=== PATIENT | male | born 1975 | race Hispanic/Latino ===

== ENCOUNTER 2018-09-15 10:28 | Emergency (ER) | payer BC ==
[~2018-09-15] VITALS: Ht 177.8 cm; Wt 88.5 kg
--- OUTSIDE RECORDS SUMMARY | 2018-09-15 10:30 | XMS REPORT | Continuity of Care Document ---
Author Author [facility] Interface Address Unknown Phone Unavailable Problems Problem Status Onset Date Classification Date Reported Comments Source Medications Medication Details Route Status Patient Instructions Ordering Provider Order Date Source Allergies, Adverse Reactions, Alerts Substance Category Reaction Severity Reaction type Status Date Reported Comments Source Immunizations Immunization Date Given Site Status Last Updated Comments Source Results Order Name Results Value Reference Range Date Interpretation Comments Source Chest 2 views DX Chest 2 views DX Patient Name: VINCENT ROONEY. : 1975; Age: 40 years y/o; Male. MR: [id number]. Ordering Physician: Avis Max MD. CHEST 2 VIEWS: HISTORY: Bronchitis, crackles at lung bases, pneumonia, cough. COMPARISON: None. FINDINGS: Frontal and lateral views of the chest were obtained. The lungs are clear bilaterally. The cardiomediastinal silhouette and pulmonary vasculature are unremarkable. The partially visualized upper abdomen is unremarkable. IMPRESSION: No acute disease in the chest. SL: SHRUTI 05/14/2016 - - Read by: Levi Lopez MD Dictated Date/time: 05/14/16 20:13 Electronically Signed by: Levi Lopez MD 05/14/16 20:13 FINAL REPORT [facility] Vital Signs Vital Sign Value Date Comments Source Encounters Location Location Details Encounter Type Encounter Number Reason For Visit Attending Provider ADM Date DC Date Status Source Outpatient [id number] AVIS MAX 05/14/2016 Active [facility] Procedures Procedure Code Date Perfomer Comments Source
--- OUTSIDE RECORDS SUMMARY | 2018-09-15 10:30 | XMS REPORT | Clinical Summary ---
Author Author [facility] Organization [facility] Address Unknown Phone Unavailable Care Team Providers Care Apple Peeler Operator Name Role Phone Khushi Wang PCP Allergies No Known Allergies Medications End Date Status Medication Sig Dispensed Refills Start Date Active potassium citrate Take 1 tablet 90 tablet 6 (UROCIT-K) 10 mEq (1,080 (10 mEq 8 mg) CR tabletIndications: total) by Hypocitraturia mouth 2 (two) times a day with meals. Active colchicine 0.6 mg tablet 2 po at onset 30 tablet 0 of gout. 8 Repeat 1 po in an hour. 07/10/2019 Active indapamide (LOZOL) 1.25 Take 1 tablet 90 tablet 3 MG tablet (1.25 mg 9 total) by mouth every morning. Active allopurinol (ZYLOPRIM) Take 1 tablet 90 tablet 1 300 MG tablet (300 mg 9 total) by mouth daily. 05/08/2018 Discontinued allopurinol (ZYLOPRIM) TAKE 1 TABLET 90 tablet 0 300 MG tablet BY MOUTH 8 EVERY DAY 04/05/2018 indomethacin (INDOCIN) 25 Take 1 90 capsule 2 MG capsule capsule (25 8 mg total) by mouth 3 (three) times a day with meals for 90 days. 08/07/2018 Discontinued allopurinol (ZYLOPRIM) TAKE 1 TABLET 90 tablet 0 300 MG tablet BY MOUTH 8 EVERY DAY 07/22/2018 Discontinued tamsulosin (FLOMAX) 0.4 Take 1 30 capsule 0 mg capsule capsule (0.4 9 mg total) by mouth daily for 30 days. 07/11/2018 naproxen (NAPROSYN) 500 Take 1 tablet 10 tablet 0 MG tablet (500 mg 9 total) by mouth 2 (two) times a day with meals for 5 days. 08/21/2018 tamsulosin (FLOMAX) 0.4 Take 1 30 capsule 0 mg capsule capsule (0.4 9 mg total) by mouth daily for 30 days. 07/25/2018 sulfamethoxazole-trimetho Take 1 tablet 6 tablet 0 prim (BACTRIM DS) 800-160 by mouth 2 9 mg per tablet (two) times a day for 3 days. 08/05/2018 traMADol (ULTRAM) 50 mg Take 1 tablet 15 tablet 0 tablet (50 mg total) 9 by mouth every 6 (six) hours as needed for moderate pain for up to 14 days. 08/05/2018 phenazopyridine Take 1 tablet 15 tablet 0 (PYRIDIUM) 100 MG tablet (100 mg 9 total) by mouth 3 (three) times a day as needed for bladder spasms for up to 14 days. 08/21/2018 docusate sodium (COLACE) Take 1 60 capsule 0 100 MG capsule capsule (100 9 mg total) by mouth 2 (two) times a day for 30 days. 08/05/2018 oxybutynin (DITROPAN) 5 Take 1 tablet 10 tablet 0 MG tablet (5 mg total) 9 by mouth 3 (three) times a day as needed for bladder spasms for up to 14 days. Active Problems Problem Noted Date Bilateral ureteral calculi 07/22/2018 Moderate urinary obstruction 06/30/2017 Obstructive uropathy 06/28/2017 Liver hemangioma 03/21/2017 Acute pyelonephritis 06/25/2016 Ureterolithiasis 06/14/2016 Gout 04/18/2011 Encounters Care Team Description Date Type Specialty Silvina Beckett MD Kidney stones 09/01/2018 Hospital Radiology Encounter Silvina Beckett MD Kidney stones 09/01/2018 Hospital Radiology Encounter Khushi Wang DO 08/07/2018 Refill Family Medicine Silvina Beckett MD Kidney stones (Primary Dx) 08/03/2018 Procedure visit Urology Zehra Portillo MA 07/23/2018 Telephone Urology Silvina Beckett MD CYSTO, BILATERAL URETEROSCOPY W/ LASER LITHOTRIPSY, BILATERAL URETERAL STONE REMOVAL, BILATERAL URETERAL STENT INSERTION 07/22/2018 Surgery Urology Kelley Olvera APRN 07/22/2018 Anesthesia Urology Event Silvina Beckett MD Bilateral ureteral calculi; Renal stone 07/22/2018 Hospital General Internal Medicine - Encounter 07/23/2018 Silvina Beckett MD 07/22/2018 Telephone Urology Silvina Beckett MD 07/16/2018 Telephone Urology Silvina Beckett MD Recurrent kidney stones (Primary Dx); Hypocitraturia; Hypercalciuria 07/10/2018 Office Visit Urology Del[facility] MD Bernice Ureteral stone with hydronephrosis (Primary Dx) 07/05/2018 Emergency Emergency Medicine - 07/06/2018 Khushi Wang, 05/08/2018 Refill Family Medicine Khushi Wang, DO 03/09/2018 Telephone Family Medicine Khushi Wang DO 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 (Primary Dx); Migraine without aura and without status migrainosus, not intractable 01/05/2018 Office Visit Family Medicine Khushi Wang, 01/05/2018 Telephone Family Medicine Zehra Portillo MA 12/16/2017 Telephone Urology Silvina Beckett MD 12/16/2017 Orders Only Urology Carrillo Laureano MD 10/10/2017 Orders Only Urology Silvina Beckett MD Hypocitraturia (Primary Dx); Nephrolithiasis; Hypercalciuria 10/02/2017 Office Visit Urology Silvina Beckett MD 09/26/2017 Telephone Urology Silvina Beckett MD 09/25/2017 Telephone Urology Carrillo Laureano MD 09/24/2017 Orders Only Urology Zehra Portillo MA 09/24/2017 Telephone Urology after 09/14/2017 Immunizations Name Dates Previously Given Next Due FLUCELVAX QUAD PF (0.5mL 07/01/2017 syringe) Tdap 10/05/2005 Family History Medical History Relation Name Comments Seizures Father Thyroid disease Father No Known Problems Mother Relation Name Status Comments Father Alive Mother Alive Social History Date Tobacco Use Types Packs/Day Years Used Light Tobacco Smoker Cigars, 0.25 20 Cigarettes Smokeless Tobacco: Never Used Tobacco Cessation: Ready to Quit: No; Counseling Given: No Comments: occaisional Alcohol Use Drinks/Week oz/Week Comments Yes occasionally Sex Assigned at Date Recorded Not on file Industry Job Start Date Occupation Not on file Not on file Not on file Travel End Travel History Travel Start No recent travel history available. Last Filed Vital Signs Time Taken Vital Sign Reading 07/23/2018 7:40 AM RECORDING STUDIO SET UP WORKER Blood Pressure 130/79 07/23/2018 7:40 AM RECORDING STUDIO SET UP WORKER Pulse 79 07/23/2018 7:40 AM RECORDING STUDIO SET UP WORKER Temperature 36.5 C (97.7 F) 07/23/2018 7:40 AM RECORDING STUDIO SET UP WORKER Respiratory Rate 18 07/23/2018 7:40 AM RECORDING STUDIO SET UP WORKER Oxygen Saturation 97% - Inhaled Oxygen - Concentration 07/22/2018 6:31 AM RECORDING STUDIO SET UP WORKER Weight 88.1 kg (194 lb 2 oz) 07/22/2018 6:31 AM RECORDING STUDIO SET UP WORKER Height 177.8 cm (5' 10") 07/22/2018 6:31 AM RECORDING STUDIO SET UP WORKER Body Mass Index 27.85 Plan of Treatment Health Maintenance Due Date Last Done Comments INFLUENZA VACCINE 01/14/2018 07/01/2017 Implants Device Identifier Shelf Expiration Date Model / Serial / Lot Implanted Type Area Manufactur er 03/19/2019 [id number] / / [id number] Stent Uretl Unvrsa 6fr 28cm Surgical N/A: N/A [employer] Resources[employer]ol[employer] W/ Gw - [id number] Stents UROLOGICAL Implanted: 06/15/2016 (Quantity not on file) 12/14/2018 [id number] / / [id number] Stent Uretl Unvrsa 6fr 28cm Surgical Left: N/A [employer] ResourcesphFollicum W/ Gw - [id number] Stents UROLOGICAL Implanted: Qty: 1 on 07/11/2016 by Silvina Beckett MD 03/10/2020 [id number] / / [id number] Stent Uretl Unvrsa Reprcsd 6fr 26cm Urological N/A: N/A [employer] Resourcesphlc Ctng - [id number] Implants UROLOGICAL Implanted: 06/28/2017 (Quantity not or Sets on file) 02/29/2020 [id number] / / [id number] Stent Uretl Unvrsa Reprcsd 6fr 26cm Urological Left: Ureter, COOK Hydrphlc Ctng - [id number] Implants [place] UROLOGICAL Implanted: 07/16/2017 (Quantity not or Sets on file) 04/05/2021 192 133 / / [id number] Stent Uretl Polrs Ult 2drmtr 6fr Urological Right: Ureter, BSC 26cm Hydroplus W/O Gw - [id number] Implants [place] UROLOGY Implanted: Qty: 1 on 07/22/2018 by or Silvina Richard MD 04/05/2021 192 133 / / [id number] Stent Uretl Polrs Ult 2drmtr 6fr Urological Left: Ureter, BSC 26cm Hydroplus W/O Gw - [id number] Implants [place] UROLOGY Implanted: Qty: 1 on 07/22/2018 by or Silvina Richard MD Procedures Comments Procedure Name Priority Date/Time Associated Diagnosis XR KUB KIDNEY URETER Routine 09/01/2018 Kidney stones BLADDER 11:35 AM CDT US RENAL Routine 09/01/2018 Kidney stones 11:30 AM CDT POC URINALYSIS DIPSTICK Routine 08/03/2018 Kidney stones 11:03 AM RECORDING STUDIO SET UP WORKER ESTIMATED GFR Routine 07/23/2018 4:50 AM RECORDING STUDIO SET UP WORKER HEMOGLOBIN & HEMATOCRIT Routine 07/23/2018 4:50 AM RECORDING STUDIO SET UP WORKER BASIC METABOLIC PANEL Routine 07/23/2018 4:50 AM RECORDING STUDIO SET UP WORKER SURGICAL PATHOLOGY Routine 07/22/2018 REQUEST 11:05 AM RECORDING STUDIO SET UP WORKER CALCULI ANALYSIS WITH Routine 07/22/2018 PHOTO 9:53 AM RECORDING STUDIO SET UP WORKER CALCULI ANALYSIS WITH Routine 07/22/2018 PHOTO 9:53 AM RECORDING STUDIO SET UP WORKER FL RENAL STENTOGRAM Routine 07/22/2018 9:00 AM RECORDING STUDIO SET UP WORKER MA AN ELECTIVE Routine 07/22/2018 ENDOTRACHEAL AIRWAY 8:19 AM RECORDING STUDIO SET UP WORKER Procedure Note - Martine Vega CRNA - 07/22/2018 8:19 AM RECORDING STUDIO SET UP WORKER ANESTHESIA INTUBATION Date/Time: 07/22/2018 8:00 AM Performed by: Martine Vega CRNA Authorized by: Ever Arroyo MD Location: OR Urgency: Elective Anesthesio logist: Ever Arroyo MD Resident/C RNA/AA: Martine Vega CRNA Performed by: resident/C RNA/AA Preoxygena jorge luis with 100% O2: Yes Mask Ventilatio n: Easy mask Final Airway Type: Endotrache al airway Final Endotrache al Airway: ETT Technique Used: Direct laryngosco py Insertion Site: Oral Blade Type: Sexton Laryngosco pe Blade/Vide olaryngosc ope Blade Size: 2 ETT Size (mm): 8.0 Measured from: Lips ETT to Lips (cm): 23 Placement Verified by: CO2 detection, direct visualizat ion and equal breath sounds Laryngosco pic view: Grade IIa - partial view of glottis Rapid Sequence Induction (RSI): No Modified RSI: No Number of Attempts at Approach: 1 CYSTO, URETEROSCOPY 07/22/2018 Bilateral ureteral 8:00 AM RECORDING STUDIO SET UP WORKER calculi Renal stone Special Needs EST 3 HRS PROTHROMBIN TIME WITH INR Routine 07/10/2018 Recurrent kidney stones 11:38 AM RECORDING STUDIO SET UP WORKER PARTIAL THROMBOPLASTIN Routine 07/10/2018 Recurrent kidney stones TIME (PTT) 11:38 AM RECORDING STUDIO SET UP WORKER MICROSCOPIC EXAMINATION Routine 07/10/2018 10:35 AM RECORDING STUDIO SET UP WORKER URINALYSIS, AUTOMATED Routine 07/10/2018 Recurrent kidney stones WITH MICROSCOPY 10:35 AM RECORDING STUDIO SET UP WORKER CT RENAL STONE PROTOCOL STAT 07/06/2018 1:58 AM RECORDING STUDIO SET UP WORKER ESTIMATED GFR STAT 07/06/2018 12:47 AM RECORDING STUDIO SET UP WORKER LACTIC ACID LEVEL, SEPSIS Timed 07/06/2018 - NOW AND REPEAT 2X EVERY 12:47 AM RECORDING STUDIO SET UP WORKER 3 HOURS COMPREHENSIVE METABOLIC STAT 07/06/2018 PANEL 12:47 AM RECORDING STUDIO SET UP WORKER HC COMPLETE BLD COUNT STAT 07/06/2018 W/AUTO DIFF 12:47 AM RECORDING STUDIO SET UP WORKER URINALYSIS SCREEN AND Routine 07/06/2018 MICROSCOPY, WITH REFLEX 12:47 AM RECORDING STUDIO SET UP WORKER TO CULTURE URINE CULTURE Routine 07/06/2018 12:45 AM RECORDING STUDIO SET UP WORKER URIC ACID LEVEL Routine 03/09/2018 Chronic idiopathic gout 1:50 PM CDT involving toe of right foot without tophus COMPREHENSIVE METABOLIC Routine 03/09/2018 Chronic idiopathic gout PANEL 1:50 PM CDT involving toe of right foot without tophus LITHOLINK STONE RISK Routine 12/16/2017 FACTORS, DIETARY FACTORS, AND NORMALIZED VALUES STONE ANALYSIS Routine 10/10/2017 after 09/14/2017 Results * XR Kub Kidney Ureter Bladder (09/01/2018 11:35 AM CDT) Narrative Performed At XR KUB [facility]ID[facility]RETER BL[facility]DER [facility] CLINICAL INDICATION:N20.0 Calculus of kidney, kidney stones COMPARISON:November 15, 2016, CT July 06, 2018 IMPRESSION: Recent CT evaluation demonstrated bilateral nephrolithiasis and small stones in the proximal ureters. Although bowel obscures the renal fossa bilaterally, no distinct renal or ureteral stones are identified. Bowel gas pattern is within normal limits. There is no evidence for free intraperitoneal air. Osseous structures are intact. [id number] Procedure Note Interface, Radiology Results Incoming - 09/01/2018 11:52 AM CDT XR KUB KIDNEY URETER BLADDER CLINICAL INDICATION: N20.0 Calculus of kidney, kidney stones COMPARISON: November 15, 2016, CT July 06, 2018 IMPRESSION: Recent CT evaluation demonstrated bilateral nephrolithiasis and small stones in the proximal ureters. Although bowel obscures the renal fossa bilaterally, no distinct renal or ureteral stones are identified. Bowel gas pattern is within normal limits. There is no evidence for free intraperitoneal air. Osseous structures are intact. [id number] Performing Organization Address City/State/Zipcode Phone Number [facility] [address] [place] [address] * US Renal (09/01/2018 11:30 AM CDT) Narrative Performed At EXAMINATION:[facility] CLINICAL HISTORY:N20.0 Calculus of kidney, kidney stones COMPARISON:03/19/2017 ultrasound exam, 07/06/2018 CT renal stone exam. TECHNIQUE: Renal ultrasound performed utilizing grayscale/B mode, and color Doppler technique. FINDINGS: Right kidney: Measures 12.3 cm in length and 1.5 cm in cortical thickness. Increased echogenicity compatible with medical renal disease. Previous right renal stone is not identified on current exam. No renal mass or hydronephrosis is identified. Left kidney: Measures 12.5 cm in length and 1.3 cm in cortical thickness. Increased echogenicity compatible with medical renal disease. A 2.2 x 0.9 cm conglomerate calculus in the inferior left kidney is grossly stable since 2017 exam. A couple tiny echogenic foci likely represent additional tiny renal stones. At least mild hydronephrosis given partial loss of the renal sinus fat. No renal mass is identified. Bladder: Unremarkable. IMPRESSION: A 2.2 cm inferior left renal conglomerate calculus is stable since 03/19/2017 exam. A couple tiny echogenic lesions identified are probably additional left renal calculi. Mild left hydronephrosis is probable. No discrete right renal stone on current exam. Medical renal disease. I personally reviewed the images and the resident's findings and agree with the final report. [facility]-[id number] Procedure Note [facility], Radiology Results Incoming - 09/01/2018 2:08 PM CDT EXAMINATION: US RENAL CLINICAL HISTORY: N20.0 Calculus of kidney, kidney stones COMPARISON: 03/19/2017 ultrasound exam, 07/06/2018 CT renal stone exam. TECHNIQUE: Renal ultrasound performed utilizing grayscale/B mode, and color Doppler technique. FINDINGS: Right kidney: Measures 12.3 cm in length and 1.5 cm in cortical thickness. Increased echogenicity compatible with medical renal disease. Previous right renal stone is not identified on current exam. No renal mass or hydronephrosis is identified. Left kidney: Measures 12.5 cm in length and 1.3 cm in cortical thickness. Increased echogenicity compatible with medical renal disease. A 2.2 x 0.9 cm conglomerate calculus in the inferior left kidney is grossly stable since 2017 exam. A couple tiny echogenic foci likely represent additional tiny renal stones. At least mild hydronephrosis given partial loss of the renal sinus fat. No renal mass is identified. Bladder: Unremarkable. IMPRESSION: A 2.2 cm inferior left renal conglomerate calculus is stable since 03/19/2017 exam. A couple tiny echogenic lesions identified are probably additional left renal calculi. Mild left hydronephrosis is probable. No discrete right renal stone on current exam. Medical renal disease. I personally reviewed the images and the resident's findings and agree with the final report. [facility]-[id number] Performing Organization Address City/[facility]/Zipcode Phone Number [facility] [address] [place] [address] * POC urinalysis dipstick (08/03/2018 11:03 AM RECORDING STUDIO SET UP WORKER) Color urine, POC Yellow Clarity urine, POC Clear Glucose urine, POC Negative Negative Bilirubin urine, POC Negative Negative Ketones urine, POC Negative Negative Specific gravity urine, 1.015 1.005 - 1.030 POC Blood urine, POC Large (A) Negative pH urine, POC 7.0 5.0, 5.5, 6.0, 6.5, 7.0, 7.5, 8.0, 8.5 Protein urine, POC 3+ (A) Negative Urobilinogen urine, POC <2.0 <2.0 Nitrite urine, POC Negative Negative Leukocyte esterase urine, Large (A) Negative POC Specimen Urine * Estimated GFR (07/23/2018 4:50 AM RECORDING STUDIO SET UP WORKER) Only the most recent of 2 results within the time period is included. Estimated GFR 76 mL/min/1.73 m2 [facility] Comment: HOSPITAL CatergoryUnitsInte rpretation G1 >=90 Normal or high G2 60-89Mildly decreased G3e84-36 Mildly to moderately decreased Z7f32-90 Moderately to severely decreased G4 15-29Severely decreased G5 <15Kidney failure The eGFR was calculated using the Chronic Kidney Disease Epidemiology Collaboration (CKD-EPI) equation. Interpretation is based on recommendations of the National Kidney Foundation-Kidney Disease Outcomes Quality Initiative (NKF-KDOQI) published in 2014. Specimen Plasma specimen Performing Organization Address City/[facility]/Zipcode Phone Number [facility] DEPARTMENT [address] [place] [address] PATHOLOGY AND GENOMIC MEDICINE [address] * Hemoglobin & hematocrit (07/23/2018 4:50 AM RECORDING STUDIO SET UP WORKER) HGB 14.7 14.0 - 18.0 g/dL [facility] HCT 43.2 41.0 - 51.0 % [facility] Specimen Blood Performing Organization Address City/[facility]/Zipcode Phone Number [facility] DEPARTMENT OF [address] [place] [address] PATHOLOGY AND GENOMIC MEDICINE [address] * Basic metabolic panel (07/23/2018 4:50 AM RECORDING STUDIO SET UP WORKER) Sodium 135 135 - 148 mEq/L [facility] Potassium 3.9 3.5 - 5.0 mEq/L [facility] Chloride 99 98 - 112 mEq/L [facility] CO2 25 24 - 31 mEq/L [facility] Anion gap 11@ANIO 7 - 15 mEq/L [facility] BUN 15 6 - 20 mg/dL [facility] Creatinine 1.17 0.70 - 1.20 mg/dL [facility] Glucose 96 65 - 99 mg/dL [facility] Calcium 8.8 8.3 - 10.2 mg/dL [facility] Specimen Plasma specimen Performing Organization Address City/[facility] Phone Number [facility] DEPARTMENT OF [address] [place] [address] PATHOLOGY AND GENOMIC MEDICINE [address] * Surgical pathology request (07/22/2018 11:05 AM RECORDING STUDIO SET UP WORKER) [facility] DEPARTMENT OF PATHOLOGY AND GENOMIC MEDICINE Surgical pathology report See link below for PDF Lab [facility] DEPARTMENT OF Report PATHOLOGY AND GENOMIC MEDICINE Result status This is Final Report for [facility] DEPARTMENT OF [id number] PATHOLOGY AND GENOMIC MEDICINE Performing Organization Address City/[facility]/Zipcode Phone Number [facility] DEPARTMENT OF [address] [place] [address] PATHOLOGY AND GENOMIC MEDICINE * Calculi analysis with photo (07/22/2018 9:53 AM RECORDING STUDIO SET UP WORKER) Only the most recent of 2 results within the time period is included. Calculi mass 41 mg [facility] Calculi number Numerous [facility] Calculi size Various mm [facility] Calculi descrption See Note [facility] Comment: Calculi source reported as right renal. Specimen consists of numerous, various sized (1 mm to 9 mm), white/light kimble, crystalline calculi fragments. Calculi composition See Note [facility] Comment: Calculi composed primarily of: 20% calcium oxalate monohydrate, 60% calcium oxalate dihydrate, and 20% calcium phosphate (hydroxy- and carbonate- apatite). INTERPRETIVE INFORMATION: Calculi (Stone) analysis Calculi are the products of physiological processes that yield crystalline compounds in a matrix of biological compounds and blood.Matrix components are not reported.The clinically significant crystalline components identified in calculi specimens are reported.Gross description may not be consistent with composition determined by FTIR analysis. EER calculi (stone) See Note [facility] analysis and photo Comment: Access [employer] Enhanced Report using either link below: -Direct access: [email or web address] -Enter Username, Password: [email or web address] Username: [email or web address] Password: [email or web address] Performed by [facility], [address] [place] [id number] [email or web address], Misha Wagner MD - Lab. Director Specimen Serum Narrative Performed At [id number] [facility] Performing Organization Address City/[facility] Phone Number [facility] [address] [place] [address] [facility] [address] [place] [address] * FL Renal Stentogram (07/22/2018 9:00 AM RECORDING STUDIO SET UP WORKER) Narrative Performed At EXAMINATION:FL RENAL STENTOGRAM [facility] INDICATION:Pain IMPRESSION: Intraoperative for be provided. No radiologist present for procedure. Please see procedure note for detail. Fluoroscopic images: 11 Fluoroscopy time: 17 seconds Procedure Note Interface, Radiology Results Incoming - 07/22/2018 3:44 PM RECORDING STUDIO SET UP WORKER EXAMINATION: FL RENAL STENTOGRAM INDICATION: Pain IMPRESSION: Intraoperative for be provided. No radiologist present for procedure. Please see procedure note for detail. Fluoroscopic images: 11 Fluoroscopy time: 17 seconds Performing Organization Address City/[facility]/Zipcode Phone Number [facility] [address] [place] [address] * Partial thromboplastin time, activated (07/10/2018 11:38 AM RECORDING STUDIO SET UP WORKER) aPTT 28 24 - 33 sec [facility] Comment: This test has not been validated for monitoring unfractionated heparin therapy. aPTT-based therapeutic ranges for unfractionated heparin therapy have not been established. For general guidelines on Heparin monitoring, refer to the [facility] Directory of Services. Specimen Blood Narrative Performed At Performed at:[address] [place], [place] [id number] Sash Finisher: Tin Mariano MD, Phone:[phone] Performing Organization Address [facility] Phone Number [facility] * Prothrombin time with INR (07/10/2018 11:38 AM RECORDING STUDIO SET UP WORKER) INR 0.9 0.8 - 1.2 [facility] Comment: Reference interval is for non-anticoagulated patients. Suggested INR therapeutic range for Vitamin K antagonist therapy: Standard Dose (moderate intensity therapeutic range): 2.0 - 3.0 Higher intensity therapeutic range 2.5 - 3.5 Prothrombin time 9.8 9.1 - 12.0 sec [facility] Specimen Blood Narrative Performed At Performed at:[address] [place], [place] [id number] Sash Finisher: Tin Mariano MD, Phone:[phone] Performing Organization Address [facility] Phone Number [facility] * Microscopic Examination (07/10/2018 10:35 AM RECORDING STUDIO SET UP WORKER) WBC, UA 0-5 0 - 5 /hpf [facility] RBC, UA 0-2 0 - 2 /hpf [facility] Epithelial cells (non 0-10 0 - 10 /hpf [facility] renal) Mucus, UA Present Not Estab. [facility] Bacteria, UA None seen None seen/Few [facility] Narrative Performed At Performed at:[address] [place], [place] [id number] Sash Finisher: Tin Mariano MD, Phone:[phone] Performing Organization Address [facility] Phone Number [facility] * Urinalysis, automated with microscopy (07/10/2018 10:35 AM RECORDING STUDIO SET UP WORKER) Specific gravity, urine 1.013 1.005 - 1.030 [facility] pH, urine 6.0 5.0 - 7.5 [facility] Color, UA Yellow Yellow [facility] Appearance Clear Clear [facility] WBC esterase, urine Negative Negative [facility] Protein, UA Negative Negative/Trace [facility] Glucose, urine Negative Negative [facility] Ketones, UA Negative Negative [facility] Occult blood, urine Trace (A) Negative [facility] Bilirubin, UA Negative Negative [facility] Urobilinogen, UA 0.2 0.2 - 1.0 mg/dL [facility] Nitrite, UA Negative Negative [facility] Microscopic examination See below:Comment: Microscopic [facility] was indicated and was performed. Specimen Urine Narrative Performed At Performed at: [facility] [address] [place], [id number] Sash Finisher: Tin Mariano MD, Phone:[phone] Performing Organization Address City/State/Zipcode Phone Number [id number] * CT Renal Stone Protocol (07/06/2018 1:58 AM RECORDING STUDIO SET UP WORKER) Narrative Performed At EXAMINATION:CT RENAL STONE PROTOCOL RADIANT CLINICAL HISTORY:Flank painrecurrent stone disease suspected TECHNIQUE: Multiple axial images of the abdomen and pelvis were obtained without intravenous administration of iodinated contrast. Sagittal and coronal computerized reformatted images were also obtained. The lack of intravenous contrast reduces the sensitivity of detecting solid organ disease. CT imaging was performed with iterative reconstruction technique and/or automated exposure control to reduce radiation dose. COMPARISON:06/28/2017 IMPRESSION: A 1.5 cm hypodense nodule arising from left lobe of the liver is compatible with hemangioma as correlated with MRI abdomen dated 05/05/2017. Gallbladder, spleen, pancreas, adrenal glands are normal. In the mid left ureter, there is a 0.2 cm calculus which results in mild left hydronephrosis and hydroureter. In the proximal right ureter, there is a 0.3 x 0.2 cm calculus which results in mild right hydronephrosis and hydroureter. Additional calculi are seen throughout the collecting system of the kidneys bilaterally. Marked distention of the bladder. No free intraperitoneal fluid or air. Diverticulosis is seen without diverticulitis. Appendix is normal. No gastrointestinal tract obstruction. No acute osseous abnormalities. CONCLUSION: In the mid left ureter, a 0.2 x 0.2 cm calculus results in mild left hydronephrosis and hydroureter. In the proximal right ureter, a 0.3 x 0.2 cm calculus results in mild right hydronephrosis and hydroureter. Additional calculi are seen throughout the collecting system of the kidneys bilaterally. [facility]-[id number] Procedure Note Interface, Radiology Results Incoming - 07/06/2018 2:10 AM RECORDING STUDIO SET UP WORKER EXAMINATION: CT RENAL STONE PROTOCOL CLINICAL HISTORY: Flank pain recurrent stone disease suspected TECHNIQUE: Multiple axial images of the abdomen and pelvis were obtained without intravenous administration of iodinated contrast. Sagittal and coronal computerized reformatted images were also obtained. The lack of intravenous contrast reduces the sensitivity of detecting solid organ disease. CT imaging was performed with iterative reconstruction technique and/or automated exposure control to reduce radiation dose. COMPARISON: 06/28/2017 IMPRESSION: A 1.5 cm hypodense nodule arising from left lobe of the liver is compatible with hemangioma as correlated with MRI abdomen dated 05/05/2017. Gallbladder, spleen, pancreas, adrenal glands are normal. In the mid left ureter, there is a 0.2 cm calculus which results in mild left hydronephrosis and hydroureter. In the proximal right ureter, there is a 0.3 x 0.2 cm calculus which results in mild right hydronephrosis and hydroureter. Additional calculi are seen throughout the collecting system of the kidneys bilaterally. Marked distention of the bladder. No free intraperitoneal fluid or air. Diverticulosis is seen without diverticulitis. Appendix is normal. No gastrointestinal tract obstruction. No acute osseous abnormalities. CONCLUSION: In the mid left ureter, a 0.2 x 0.2 cm calculus results in mild left hydronephrosis and hydroureter. In the proximal right ureter, a 0.3 x 0.2 cm calculus results in mild right hydronephrosis and hydroureter. Additional calculi are seen throughout the collecting system of the kidneys bilaterally. [facility]-[id number] Performing Organization Address City/State/Zipcode Phone Number [facility] [address] [place] [address] * Urinalysis screen and microscopy, with reflex to culture (07/06/2018 12:47 AM RECORDING STUDIO SET UP WORKER) Specimen site Clean catch [facility] Color, UA Colorless [facility] Appearance, UA Clear [facility] Specific gravity, UA 1.003 1.001 - 1.035 [facility] pH, UA 7.0 5.0 - 8.5 [facility] Protein, UA Negative Negative [facility] Glucose, UA Negative Negative [facility] Ketones, UA Negative Negative [facility] Bilirubin, UA Negative Negative [facility] Blood, UA Small (A) Negative [facility] Nitrite, UA Negative Negative [facility] Urobilinogen, UA <2.0 <2.0 [facility] Leukocyte esterase, UA Negative Negative [facility] WBC, UA <1 0 - 1 /HPF [facility] RBC, UA <1 0 - 5 /HPF [facility] Bacteria, UA None seen None seen [facility] Yeast, UA None seen [facility] Yeast with pseudohyphae, None seen [facility] Specimen Urine Performing Organization Address City/[facility] Phone Number [facility] DEPARTMENT OF [address] [place] [address] PATHOLOGY AND GENOMIC MEDICINE [address] * Lactic acid level, SEPSIS - Now and repeat 2x every 3 hours (07/06/2018 12:47 AM RECORDING STUDIO SET UP WORKER) Lactic acid 1.6 0.5 - 2.2 mmol/L [facility] Specimen Blood Performing Organization Address City/[facility] Phone Number [facility] DEPARTMENT OF [address] [place] [address] PATHOLOGY AND GENOMIC MEDICINE [address] * CBC with platelet and differential (07/06/2018 12:47 AM RECORDING STUDIO SET UP WORKER) WBC 6.79 4.50 - 11.00 k/uL [facility] RBC 4.99 4.40 - 6.00 m/uL [facility] HGB 16.0 14.0 - 18.0 g/dL [facility] HCT 45.9 41.0 - 51.0 % [facility] MCV 92.0 82.0 - 100.0 fL [facility] MCH 32.1 27.0 - 34.0 pg [facility] MCHC 34.9 31.0 - 37.0 g/dL [facility] RDW - SD 38.0 37.0 - 55.0 fL [facility] MPV 8.6 (L) 8.8 - 13.2 fL [facility] Platelet count 275 150 - 400 k/uL [facility] Nucleated RBC 0.00 /100 WBC [facility] Neutrophils 30.1 (L) 39.0 - 69.0 % [facility] Lymphocytes 58.6 (H) 25.0 - 45.0 % [facility] Monocytes 5.0 0.0 - 10.0 % [facility] Eosinophils 5.2 (H) 0.0 - 5.0 % [facility] Basophils 1.0 0.0 - 1.0 % [facility] Immature granulocytes 0.1Comment: "Immature 0.0 - 1.0 % [facility] granulocytes" (promyelocytes, HOSPITAL myelocytes, metamyelocytes) Specimen Blood Performing Organization Address City/State/Zipcode Phone Number [facility] DEPARTMENT OF [address] [place] [address] PATHOLOGY AND GENOMIC MEDICINE [address] * Comprehensive metabolic panel (07/06/2018 12:47 AM RECORDING STUDIO SET UP WORKER) Only the most recent of 2 results within the time period is included. Sodium 139 135 - 148 mEq/L [facility] Potassium 4.0 3.5 - 5.0 mEq/L [facility] Chloride 102 98 - 112 mEq/L [facility] CO2 26 24 - 31 mEq/L [facility] Anion gap 11@ANIO 7 - 15 mEq/L [facility] BUN 8 6 - 20 mg/dL [facility] Creatinine 0.99 0.70 - 1.20 mg/dL [facility] Glucose 95 65 - 99 mg/dL [facility] Calcium 9.1 8.3 - 10.2 mg/dL [facility] Protein 7.2 6.3 - 8.3 g/dL [facility] Comment: HOSPITAL 4.6-7.0 g/dL 1 week 4.4-7.6 g/dL 7 months-1year 5.1-7.3 g/dL 1-2 years5.6-7 .5 g/dL >3 years6.0-8 .0 g/dL 18-150 6.3-8.3 g/dL Albumin 4.2 3.5 - 5.0 g/dL [facility] A/G ratio 1.4 0.7 - 3.8 [facility] Alkaline phosphatase 68 40 - 129 U/L [facility] AST 31 10 - 50 U/L [facility] ALT 27 5 - 50 U/L [facility] Total bilirubin 0.5 0.0 - 1.2 mg/dL [facility] Specimen Plasma specimen Performing Organization Address [facility] Phone Number [facility] DEPARTMENT OF [address] [place] [phone] PATHOLOGY AND GENOMIC MEDICINE [address] * Urine culture (07/06/2018 12:45 AM RECORDING STUDIO SET UP WORKER) Urine culture SEE COMMENTComment: [facility] Bacteriuria screen negative. HOSPITAL Performing Organization Address City/[facility] Phone Number [facility] DEPARTMENT OF [address] [place] [phone] PATHOLOGY AND GENOMIC MEDICINE [address] * Uric acid level (03/09/2018 1:50 PM CDT) Uric acid 7.2Comment: 3.7 - 8.6 mg/dL [facility] Therapeutic target for gout patients: <6.0 Specimen Blood Narrative Performed At Performed at:01 - [facility] [address] [place], [id number] Sash Finisher: Tin Mariano MD, Phone:[phone] Performing Organization Address [facility] Phone Number [email or web address] * [facility] (12/16/2017) Specimen Urine Narrative Performed At * Stone analysis (10/10/2017) Narrative Performed At after 09/14/2017 Insurance Payer Benefit Subscriber ID Type Phone Address Plan / Group BCBS BCBS OUT xxxxxxxxxxxx PPO OF STATE Advance Directives Patient has advance care planning documents, and code status on file. For more i nformation, please contact: [address] [address] Date Inactivated Comments Code Status Date Activated 07/01/2017 8:37 PM Full Code 06/28/2017 2:39 PM Code Status decision reached by: Patient
[2018-09-15] MEDS ORDERED: POVIDONE IODINE 10% 120 ML BTL EXT ONE (11:15)
[2018-09-15] MEDS ORDERED: BACITRACIN ZINC 0.9GM TP ONE (11:15)
== END 2018-09-15 11:52 | disposition home or self-care (01) ==
LOC: FSED 10:28
DX: S61.211A Laceration without foreign body of left index finger without damage to nail, initial encounter (principal); W26.0XXA Contact with knife, initial encounter; Y92.008 Other place in unspecified non-institutional (private) residence as the place of occurrence of the external cause; M10.9 Gout, unspecified; Z87.442 Personal history of urinary calculi
CPT/HCPCS: 99283

== ENCOUNTER 2019-02-27 10:52 | Emergency (ER) | payer BC ==
[~2019-02-27] VITALS: Ht 177.8 cm; Wt 88.0 kg
--- OUTSIDE RECORDS SUMMARY | 2019-02-27 10:55 | XMS REPORT | Clinical Summary ---
Author Author [employer] Address Unknown Phone Unavailable Care Team Providers Care Avionics Safety Inspector Name Role Phone Khushi Wang DO PCP Allergies No Known Allergies Medications End Date Status Medication Sig Dispensed Refills Start Date Active colchicine 0.6 mg tablet 2 po at onset 30 tablet 0 of gout. 8 Repeat 1 po in an hour. Additional information Patient taking differently: 102 mg oral daily, 2 po at onset of gout. Repeat 1 po in an hour., Reported on 07/15/2018 11:04 AM 07/10/2019 Active indapamide (LOZOL) 1.25 Take 1 tablet 90 tablet 3 MG tablet (1.25 mg 9 total) by mouth every morning. Active allopurinol (ZYLOPRIM) Take 1 tablet 90 tablet 1 300 MG tablet (300 mg 9 total) by mouth daily. Active potassium citrate Take 1 tablet 60 tablet 5 (UROCIT-K) 15 mEq tablet (15 mEq 9 extended total) by releaseIndications: mouth 2 (two) Hypocitraturia times a day with meals. 05/08/2018 Discontinued (Reorder) allopurinol (ZYLOPRIM) TAKE 1 TABLET 90 tablet 0 300 MG tablet BY MOUTH 8 EVERY DAY 10/21/2018 Discontinued (Reorder) potassium citrate Take 1 tablet 90 tablet 6 (UROCIT-K) 10 mEq (1,080 (10 mEq 8 mg) CR tabletIndications: total) by Hypocitraturia mouth 2 (two) times a day with meals. 04/05/2018 indomethacin (INDOCIN) 25 Take 1 90 capsule 2 MG capsule capsule (25 8 mg total) by mouth 3 (three) times a day with meals for 90 days. 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 Silvina Beckett MD Kidney stones 09/01/2018 Hospital Radiology Encounter Silvina Beckett MD Kidney stones 09/01/2018 Hospital Radiology Encounter Khushi Wang, DO 08/07/2018 Refill Family Medicine Silvina Beckett MD Kidney stones (Primary Dx) 08/03/2018 Procedure visit Urology Zehra Portillo MA 07/23/2018 Telephone Urology Silvina Beckett MD CYSTO, BILATERAL URETEROSCOPY W/ LASER LITHOTRIPSY, BILATERAL URETERAL STONE REMOVAL, BILATERAL URETERAL STENT INSERTION 07/22/2018 Surgery Urology Ever Arroyo MD Jatzlau, Amybeth, APRN 07/22/2018 Anesthesia Urology Event Silvina Beckett MD Bilateral ureteral calculi; Renal stone 07/22/2018 [facility] General Internal Medicine - Encounter 07/23/2018 Silvina Beckett MD 07/22/2018 Telephone Urology Silvina Beckett MD 07/16/2018 Telephone Urology Silvina Beckett MD Recurrent kidney stones (Primary Dx); Hypocitraturia; Hypercalciuria 07/10/2018 Office Visit Urology Delores Erwin-Banner MD Bernice Ureteral stone with hydronephrosis (Primary Dx) 07/05/2018 Emergency Emergency Medicine - 07/06/2018 Khushi Wang, DO 05/08/2018 Refill Family Medicine Khushi Wang, DO 03/09/2018 Telephone Family Medicine after 02/26/2018 Immunizations Name Administration Dates Next Due FLUCELVAX QUAD PF 07/01/2017 Tdap 10/05/2005 Family History Medical History Relation Name Comments Seizures Father Thyroid disease Father No Known Problems Mother Relation Name Status Comments Father Alive Mother Alive Social History Date Tobacco Use Types Packs/Day Years Used Light Tobacco Smoker Cigars, 0.25 20 Cigarettes Smokeless Tobacco: Never Used Tobacco Cessation: Ready to Quit: No; Counseling Given: No Comments: occaisional Drinks/Week oz/Week Comments Alcohol Use occasionally Yes Sex Assigned at Date Recorded Not on file Industry Job Start Date Occupation Not on file Not on file Not on file Travel End Travel History Travel Start No recent travel history available. Last Filed Vital Signs Reading Time Taken Comments Vital Sign 130/79 07/23/2018 7:40 AM STAFF ENGINEER Blood Pressure 79 07/23/2018 7:40 AM STAFF ENGINEER Pulse 36.5 C (97.7 F) 07/23/2018 7:40 AM STAFF ENGINEER Temperature 18 07/23/2018 7:40 AM STAFF ENGINEER Respiratory Rate 97% 07/23/2018 7:40 AM STAFF ENGINEER Oxygen Saturation - - Inhaled Oxygen Concentration 88.1 kg (194 lb 2 oz) 07/22/2018 6:31 AM STAFF ENGINEER Weight 177.8 cm (5' 10") 07/22/2018 6:31 AM STAFF ENGINEER Height 27.85 07/22/2018 6:31 AM STAFF ENGINEER Body Mass Index Plan of Treatment Health Maintenance Due Date Last Done Comments INFLUENZA VACCINE 01/14/2019 07/01/2017 Implants Device Identifier Shelf Expiration Date Model / Serial / Lot Implanted Type Area Manufactur er 03/19/2019 [id number] / / [id number] Stent Uretl Unvrsa 6fr 28cm Surgical N/A: N/A COOK Hydrphlc W/ Gw - [id number] Stents UROLOGICAL Implanted: 06/15/2016 at [facility] (Quantity not on file) 12/14/2018 [id number] / / [id number] Stent Uretl Unvrsa 6fr 28cm Surgical Left: N/A COOK Hydrphlc W/ Gw - [id number] Stents UROLOGICAL Implanted: Qty: 1 on 07/11/2016 by Silvina Beckett MD at [facility] 03/10/2020 [id number] / / [id number] Stent Uretl Unvrsa Reprcsd 6fr 26cm Urological N/A: N/A COOK Cleverlizephlc Ctng - [id number] Implants UROLOGICAL Implanted: 06/28/[address] [facility] or [facility] (Quantity not on file) 02/29/2020 [id number] / / [id number] Stent Uretl Unvrsa Reprcsd 6fr 26cm Urological Left: Ureter, COOK Hydrphlc Ctng - [id number] Implants [employer] UROLOGICAL Implanted: 07/16/[address] [facility] or [facility] (Quantity not on file) 04/05/2021 192 133 / / [id number] Stent Uretl Polrs Ult 2drmtr 6fr Urological Right: Ureter, BSC 26cm Hydroplus W/O Gw - [id number] Implants [employer] UROLOGY Implanted: Qty: 1 on 07/22/2018 by or Silvina Richard MD at [facility] 04/05/2021 192 133 / / [id number] Stent Uretl Poljunior Ult 2drmtr 6fr Urological Left: Ureter, BSC 26cm Hydroplus W/O Gw - [id number] Implants [employer] UROLOGY Implanted: Qty: 1 on 07/22/2018 by or Silvina Richard MD at [facility] Procedures Comments Procedure Name Priority Date/Time Associated Diagnosis XR KUB KIDNEY URETER Routine 09/01/2018 Kidney stones BLADDER 11:35 AM CDT US RENAL Routine 09/01/2018 Kidney stones 11:30 AM CDT POC URINALYSIS DIPSTICK Routine 08/03/2018 Kidney stones 11:03 AM STAFF ENGINEER ESTIMATED GFR Routine 07/23/2018 4:50 AM STAFF ENGINEER HEMOGLOBIN & HEMATOCRIT Routine 07/23/2018 4:50 AM STAFF ENGINEER BASIC METABOLIC PANEL Routine 07/23/2018 4:50 AM STAFF ENGINEER SURGICAL PATHOLOGY Routine 07/22/2018 REQUEST 11:05 AM STAFF ENGINEER CALCULI ANALYSIS WITH Routine 07/22/2018 PHOTO 9:53 AM STAFF ENGINEER CALCULI ANALYSIS WITH Routine 07/22/2018 PHOTO 9:53 AM STAFF ENGINEER FL RENAL STENTOGRAM Routine 07/22/2018 9:00 AM STAFF ENGINEER NJ AN ELECTIVE Routine 07/22/2018 ENDOTRACHEAL AIRWAY 8:19 AM STAFF ENGINEER Procedure Note - Martine Vega CRNA - 07/22/2018 8:19 AM STAFF ENGINEER ANESTHESIA INTUBATION Date/Time: 07/22/2018 8:00 AM Performed [...] Approach: 1 CYSTO, URETEROSCOPY 07/22/2018 Bilateral ureteral 7:54 AM STAFF ENGINEER calculi Renal stone Special Needs EST 3 HRS PROTHROMBIN TIME WITH INR Routine 07/10/2018 Recurrent kidney stones 11:38 AM STAFF ENGINEER PARTIAL THROMBOPLASTIN Routine 07/10/2018 Recurrent kidney stones TIME (PTT) 11:38 AM STAFF ENGINEER MICROSCOPIC EXAMINATION Routine 07/10/2018 10:35 AM STAFF ENGINEER URINALYSIS, AUTOMATED Routine 07/10/2018 Recurrent kidney stones WITH MICROSCOPY 10:[address] RENAL STONE PROTOCOL STAT 07/06/2018 1:58 AM STAFF ENGINEER ESTIMATED GFR STAT 07/06/2018 12:47 AM STAFF ENGINEER LACTIC ACID LEVEL, SEPSIS Timed 07/06/2018 - NOW AND REPEAT 2X EVERY 12:47 AM STAFF ENGINEER 3 HOURS COMPREHENSIVE METABOLIC STAT 07/06/2018 PANEL 12:47 AM STAFF ENGINEER HC COMPLETE BLD COUNT STAT 07/06/2018 W/AUTO DIFF 12:47 AM STAFF ENGINEER URINALYSIS SCREEN AND Routine 07/06/2018 MICROSCOPY, WITH REFLEX 12:47 AM STAFF ENGINEER TO CULTURE URINE CULTURE Routine 07/06/2018 12:45 AM STAFF ENGINEER URIC ACID LEVEL Routine 03/09/2018 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 Although bowel obscures the renal fossa bilaterally, no distinct renal or ureteral stones are identified. Bowel gas pattern is within normal limits. There is no evidence for free intraperitoneal air. Osseous structures are intact. [id number] Procedure Note [facility], Radiology Results Incoming - 09/01/2018 11:52 AM [...] free intraperitoneal air. Osseous structures are intact. [id number] Performing Organization Address City/State/Zipcode Phone Number [facility] [address] [place] [address] * US Renal (09/01/2018 11:30 AM CDT) Specimen Narrative Performed At EXAMINATION:US RENAL [facility] CLINICAL HISTORY:N20.0 Calculus of kidney, kidney stones [...] agree with the final report. [facility]-[id number] Procedure Note Hm Interface, Radiology Results Incoming - 09/01/2018 2:08 PM [...] agree with the final report. [facility]-[id number] Performing Organization Address City/State/Zipcode Phone Number [facility] [address] [place] [address] * POC urinalysis dipstick (08/03/2018 11:03 AM STAFF ENGINEER) [facility] Color urine, Yellow POC Clarity urine, Clear POC Glucose urine, Negative Negative POC Bilirubin Negative Negative urine, POC Ketones urine, Negative Negative POC Specific 1.015 1.005 - 1.030 gravity urine, POC Blood urine, Large (A) Negative POC pH urine, POC 7.0 5.0, 5.5, 6.0, 6.5, 7.0, 7.5, 8.0, 8.5 Protein urine, 3+ (A) Negative POC Urobilinogen <2.0 <2.0 urine, POC Nitrite urine, Negative Negative POC Leukocyte Large (A) Negative esterase urine, POC Specimen Urine * Estimated GFR (07/23/2018 4:50 AM STAFF ENGINEER) Only the most recent of 2 results within the time period is included. [facility] Estimated GFR 76 mL/min/1.73 m2 [facility] Comment: [facility] rpretation G1 >=90 Normal or high G2 60-89Mildly decreased [id number] Mildly to moderately decreased M5v01-85 Moderately to severely decreased G4 15-29Severely decreased G5 <15Kidney failure The eGFR was calculated using the Chronic Kidney Disease Epidemiology Collaboration (CKD-EPI) equation. Interpretation is based on recommendations of the National Kidney Foundation-Kidney Disease Outcomes Quality Initiative (NKF-KDOQI) published in 2014. Specimen Plasma specimen Performing Organization Address City/[facility] Phone Number [facility] DEPARTMENT [facility] [place] [address] PATHOLOGY AND [facility] MEDICINE [address] * Hemoglobin & hematocrit (07/23/2018 4:50 AM STAFF ENGINEER) [facility] HGB 14.7 14.0 - 18.0 g/dL [facility] HCT 43.2 41.0 - 51.0 % [facility] Specimen Blood Performing Organization Address City/[facility] [place] [address] PATHOLOGY AND [facility] MEDICINE [address] * Basic metabolic panel (07/23/2018 4:50 AM STAFF ENGINEER) Sodium 135 135 - 148 mEq/L [facility] Potassium 3.9 3.5 - 5.0 mEq/L [facility] Chloride 99 98 - 112 mEq/L [facility] CO2 25 24 - 31 mEq/L [facility] Anion gap 11@ANIO 7 - 15 mEq/L [facility] BUN 15 6 - 20 mg/dL [facility] Creatinine 1.17 0.70 - 1.20 mg/dL [facility] Glucose 96 65 - 99 mg/dL [facility] Calcium 8.8 8.3 - 10.2 mg/dL [facility] Specimen Plasma specimen Performing Organization Address City/State/Zipcode Phone Number [facility] [place] [place] [address] PATHOLOGY AND GENOMIC MEDICINE [address] * Surgical pathology request (07/22/2018 11:05 AM STAFF ENGINEER) [facility] DEPARTMENT OF PATHOLOGY AND GENOMIC MEDICINE Surgical See link below for PDF Lab [facility] DEPARTMENT pathology Report OF PATHOLOGY report AND GENOMIC MEDICINE Result status This is Final Report for [facility] DEPARTMENT [id number] OF PATHOLOGY AND GENOMIC MEDICINE Specimen Performing Organization Address City/[facility]/Zipcode Phone Number [facility] DEPARTMENT OF [address] [place] [address] PATHOLOGY AND GENOMIC MEDICINE * Calculi analysis with photo (07/22/2018 9:53 AM STAFF ENGINEER) Only the most recent of 2 results within the time period is included. Calculi mass 41 mg [facility] Calculi number Numerous [facility] Calculi size Various mm [facility] Calculi See Note [facility] descrption Comment: Calculi source reported as right renal. Specimen consists of numerous, various sized (1 mm to 9 mm), white/light kimble, crystalline calculi fragments. Calculi See Note [facility] composition Comment: Calculi composed primarily of: 20% calcium [...] composition determined by FTIR analysis. EER calculi See Note [facility] (stone) Comment: analysis and Access [employer] Enhanced Report photo using either link below: -Direct access: [email or web address] -Enter Username, Password: [email or web address] Username: [email or web address] Password: [email or web address] Performed by [facility], [address] [place] [id number] [email or web address], Misha Wagner MD - Lab. Director Specimen Serum Narrative Performed At [id number] [facility] Performing Organization Address City/[facility] Phone Number [facility] [address] [place] [address] [facility] [address] [place] [address] * FL Renal Stentogram (07/22/2018 9:00 AM STAFF ENGINEER) Specimen Narrative Performed At EXAMINATION:FL RENAL STENTOGRAM [facility] INDICATION:Pain IMPRESSION: Intraoperative for be provided. No radiologist present for procedure. Please see procedure note for detail. Fluoroscopic images: 11 Fluoroscopy time: 17 seconds Procedure Note Interface, Radiology Results Incoming - 07/22/2018 3:44 PM STAFF ENGINEER EXAMINATION: FL RENAL STENTOGRAM INDICATION: Pain IMPRESSION: Intraoperative for be provided. No radiologist present for procedure. Please see procedure note for detail. Fluoroscopic images: 11 Fluoroscopy time: 17 seconds Performing Organization Address City/[facility] Phone Number [facility] [address] [place] [address] * Partial thromboplastin time, activated (07/10/2018 11:38 AM STAFF ENGINEER) aPTT 28 24 - 33 sec [facility] Comment: This test has not been validated for monitoring unfractionated heparin therapy. aPTT-based therapeutic ranges for unfractionated heparin therapy have not been established. For general guidelines on Heparin monitoring, refer to the [facility] Directory of Services. Specimen Blood Narrative Performed At Performed at: - [facility] [address] [place], [id number] Nuclear Medicine Technologist: Tin Mariano MD, Phone:[phone] Performing Organization Address [facility] Phone Number [facility] * Prothrombin time with INR (07/10/2018 11:38 AM STAFF ENGINEER) Pathologist [facility] INR 0.9 0.8 - 1.2 [facility] Comment: Reference interval is for non-anticoagulated patients. Suggested INR therapeutic range for Vitamin K antagonist therapy: Standard Dose (moderate intensity therapeutic range): 2.0 - 3.0 Higher intensity therapeutic range 2.5 - 3.5 Prothrombin 9.8 9.1 - 12.0 sec [facility] time Specimen Blood Narrative Performed At Performed at:[address] [place] [address] [id number] Nuclear Medicine Technologist: Tin Mariano MD, Phone:[phone] Performing Organization Address [facility] Phone Number [facility] * Microscopic Examination (07/10/2018 10:35 AM STAFF ENGINEER) [facility] WBC, UA 0-5 0 - 5 /hpf [facility] RBC, UA 0-2 0 - 2 /hpf [facility] Epithelial 0-10 0 - 10 /hpf [facility] cells (non renal) Mucus, UA Present Not Estab. [facility] Bacteria, UA None seen None seen/Few [facility] Specimen Narrative Performed At Performed at:[address] [place] [address] [id number] Nuclear Medicine Technologist: Tin Mariano MD, Phone:[phone] Performing Organization Address [facility] Phone Number [facility] * Urinalysis, automated with microscopy (07/10/2018 10:35 AM STAFF ENGINEER) Pathologist [facility] Specific 1.013 1.005 - 1.030 [facility] gravity, urine pH, urine 6.0 5.0 - 7.5 [facility] Color, UA Yellow Yellow [facility] Appearance Clear Clear [facility] WBC esterase, Negative Negative [facility] urine Protein, UA Negative Negative/Trace [facility] Glucose, urine Negative Negative [facility] Ketones, UA Negative Negative [facility] Occult blood, Trace (A) Negative [facility] urine Bilirubin, UA Negative Negative [facility] Urobilinogen, 0.2 0.2 - 1.0 mg/dL [facility] UA Nitrite, UA Negative Negative [facility] Microscopic See below:Comment: Microscopic [facility] examination was indicated and was performed. Specimen Urine Narrative Performed At Performed at: [facility] [address] [place], [id number] Nuclear Medicine Technologist: Tin Mariano MD, Phone:[phone] Performing Organization Address City/State/Zipcode Phone Number [facility] * CT Renal Stone Protocol (07/06/2018 1:58 AM STAFF ENGINEER) Specimen Narrative Performed At EXAMINATION:CT RENAL STONE PROTOCOL [...] system of the kidneys bilaterally. [facility]-[id number] Procedure Note Interface, Radiology Results Incoming - 07/06/2018 2:10 AM STAFF ENGINEER EXAMINATION: CT RENAL STONE PROTOCOL CLINICAL HISTORY: [...] system of the kidneys bilaterally. [facility]-[id number] Performing Organization Address City/State/Zipcode Phone Number [facility] [address] [place] [address] * Urinalysis screen and microscopy, with reflex to culture (07/06/2018 12:47 AM STAFF ENGINEER) Specimen site Clean catch [facility] Color, UA Colorless [facility] Appearance, UA Clear [facility] Specific 1.003 1.001 - 1.035 [facility] gravity, [facility] pH, UA 7.0 5.0 - 8.5 [facility] Protein, UA Negative Negative [facility] Glucose, UA Negative Negative [facility] Ketones, UA Negative Negative [facility] Bilirubin, UA Negative Negative [facility] Blood, UA Small (A) Negative [facility] Nitrite, UA Negative Negative [facility] Urobilinogen, <2.0 <2.0 [facility] Leukocyte Negative Negative [facility] esterase, [facility] WBC, UA <1 0 - 1 /HPF [facility] RBC, UA <1 0 - 5 /HPF [facility] Bacteria, UA None seen None seen [facility] Yeast, UA None seen [facility] Yeast with None seen [facility] Specimen Urine Performing Organization Address City/[facility] Phone Number [facility] [place] [address] PATHOLOGY AND GENOMIC MEDICINE [address] * Lactic acid level, SEPSIS - Now and repeat 2x every 3 hours (07/06/2018 12:47 AM STAFF ENGINEER) [facility] Lactic acid 1.6 0.5 - 2.2 mmol/L [facility] Specimen Blood Performing Organization Address City/[facility] [place] Phone Number [facility] [place] [address] PATHOLOGY AND GENOMIC MEDICINE [address] * CBC with platelet and differential (07/06/2018 12:47 AM STAFF ENGINEER) Pathologist [facility] WBC 6.79 4.50 - 11.00 k/uL [facility] RBC 4.99 4.40 - 6.00 m/uL [facility] HGB 16.0 14.0 - 18.0 g/dL [facility] HCT 45.9 41.0 - 51.0 % [facility] MCV 92.0 82.0 - 100.0 fL [facility] MCH 32.1 27.0 - 34.0 pg [facility] MCHC 34.9 31.0 - 37.0 g/dL [facility] RDW - SD 38.0 37.0 - 55.0 fL [facility] MPV 8.6 (L) 8.8 - 13.2 fL [facility] Platelet count 275 150 - 400 k/uL [facility] Nucleated RBC 0.00 /100 WBC [facility] Neutrophils 30.1 (L) 39.0 - 69.0 % [facility] Lymphocytes 58.6 (H) 25.0 - 45.0 % [facility] Monocytes 5.0 0.0 - 10.0 % [facility] Eosinophils 5.2 (H) 0.0 - 5.0 % [facility] Basophils 1.0 0.0 - 1.0 % [facility] Immature 0.1Comment: "Immature 0.0 - 1.0 % [facility] granulocytes granulocytes" (promyelocytes, VOODOO myelocytes, metamyelocytes) HOSPITAL Specimen Blood Performing Organization Address City/[facility]/Zipcode Phone Number [facility] DEPARTMENT OF [address] [place] [address] PATHOLOGY AND GENOMIC MEDICINE [address] [place] [address] * Comprehensive metabolic panel (07/06/2018 12:47 AM STAFF ENGINEER) Only the most recent of 2 results within the time period is included. Sodium 139 135 - 148 mEq/L [facility] Potassium 4.0 3.5 - 5.0 mEq/L [facility] Chloride 102 98 - 112 mEq/L [facility] CO2 26 24 - 31 mEq/L [facility] Anion gap 11@ANIO 7 - 15 mEq/L [facility] BUN 8 6 - 20 mg/dL [facility] Creatinine 0.99 0.70 - 1.20 mg/dL [facility] Glucose 95 65 - 99 mg/dL [facility] Calcium 9.1 8.3 - 10.2 mg/dL [facility] Protein 7.2 6.3 - 8.3 g/dL [facility] Comment: [facility] 4.6-7.0 g/dL 1 week 4.4-7.6 g/dL 7 months-1year 5.1-7.3 g/dL 1-2 years5.6-7 .5 g/dL >3 years6.0-8 .0 g/dL 18-150 6.3-8.3 g/dL Albumin 4.2 3.5 - 5.0 g/dL [facility] A/G ratio 1.4 0.7 - 3.8 [facility] Alkaline 68 40 - 129 U/L [facility] phosphatase [facility] AST 31 10 - 50 U/L [facility] ALT 27 5 - 50 U/L [facility] Total bilirubin 0.5 0.0 - 1.2 mg/dL [facility] Specimen Plasma specimen Performing Organization Address City/[facility]/Zipcode Phone Number [facility] DEPARTMENT OF [address] [place] [address] PATHOLOGY AND GENOMIC MEDICINE [address] [place] [address] [facility] * Urine culture (07/06/2018 12:45 AM STAFF ENGINEER) Urine culture SEE COMMENTComment: [facility] Bacteriuria screen negative. [facility] Specimen Performing Organization Address City/State/Zipcode Phone Number 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
--- OUTSIDE RECORDS SUMMARY | 2019-02-27 10:55 | XMS REPORT | Continuity of Care Document ---
Author Author [employer] Organization [employer] Address Unknown Phone Unavailable Care Team Providers Care Elevator Operator Service Name Role Phone [facility] Information [employer] Unavailable Unavailable Problems No Data Provided for This Section Medications No Data Provided for This Section Allergies, Adverse Reactions, Alerts No Known Medication Allergies Immunizations No Data Provided for This Section Results No Data Provided for This Section Pathology Reports No Data Provided for This Section Diagnostic Reports Report Value Date Source Chest 2 views DX Patient Name: VINCENT ROONEY. : 1975; Age: 40 years y/o; Male. MR: [id number]. Ordering Physician: Avis Zabala MD. CHEST 2 VIEWS: HISTORY: Bronchitis, crackles at lung bases, pneumonia, cough. COMPARISON: None. FINDINGS: Frontal and lateral views of the chest were obtained. The lungs are clear bilaterally. The cardiomediastinal silhouette and pulmonary vasculature are unremarkable. The partially visualized upper abdomen is unremarkable. IMPRESSION: No acute disease in the chest. YAMILKA BAHENA 05/14/2016 [facility] Consultation Notes No Data Provided for This Section Discharge Summaries No Data Provided for This Section History and Physicals No Data Provided for This Section Vital Signs No Data Provided for This Section Encounters Location Location Details Encounter Type Encounter Number Reason For Visit Attending Provider ADM Date DC Date Status Source Outpatient [id number] AVIS ZABALA 05/14/2016 Active [facility] Procedures No Data Provided for This Section Assessment and Plan No Data Provided for This Section Plan of Care No Data Provided for This Section Social History No Data Provided for This Section Family History No Data Provided for This Section Advance Directives No Data Provided for This Section Functional Status No Data Provided for This Section
[2019-02-27] MEDS ORDERED: KETOROLAC TROMETHAMINE 30 MG/ML VIAL IV STA (11:13)
--- NOTE | 2019-02-27 11:51 | Diagnostic Imaging Report ---
LEFT RIB X-RAY SERIES INCLUDING PA CHEST - 4 VIEWS HISTORY: Rib pain COMPARISON: None available. FINDINGS: Bones: No acute displaced fracture. Osseous alignment is within normal limits. Joints: The joint spaces are well-maintained. Soft tissues: The soft tissues appear unremarkable. IMPRESSION: No acute radiographic abnormality. Signed by: Dr. Ada Carrillo M.D. on 02/27/2019 11:47 AM
[2019-02-27] MEDS ORDERED: KETOROLAC TROMETHAMINE 30 MG/ML VIAL ONE (12:02)
[2019-02-27] MEDS ORDERED: NAPROSYN500 MG PO (12:33)
[2019-02-27 13:06] VITALS: BP 112/77
== END 2019-02-27 12:54 | disposition home or self-care (01) ==
LOC: FSED 10:52
DX: R07.89 Other chest pain (principal)
CPT/HCPCS: 71101; 80053; 84484; 85025; 85379; 93005; 96374; 99283; J1885

== ENCOUNTER 2022-07-22 10:33 | Inpatient (IN) | payer BC ==
[~2022-07-22] VITALS: Ht 177.8 cm; Wt 95.3 kg
[~2022-07-22 10:33] MED LIST: NAPROSYN500 MG PO
[2022-07-22] MEDS ORDERED: ALLOPURINOL300 MG PO (10:58)
[2022-07-22] MEDS ORDERED: ONDANSETRON HCL INJ 2MG/ML 2ML 2 MG/ML VIAL IV STA (11:24)
[2022-07-22] MEDS ORDERED: ACETAMINOPHEN 325 MG TAB ONE (11:26)
[2022-07-22] MEDS ORDERED: Morphine 4mg INJECTION 4 MG/ML INJ IV ONE (11:30)
[2022-07-22] MEDS ORDERED: Vancomycin IV 1 GM in SODIUM CHLORIDE 0.9% 250ML 250 ML IV ONE (11:30)
[2022-07-22] MEDS ORDERED: SODIUM CHLORIDE 0.9% 1000ML 1,000 ML IV SCH (11:30)
[2022-07-22] MEDS ORDERED: SODIUM CHLORIDE 0.9% 250ML 250 ML ONE (11:40)
[2022-07-22] MEDS ORDERED: PIPERACILLIN/TAZOBACTAM 3.375 GM VIAL ONE (11:40)
[2022-07-22] MEDS ORDERED: Vancomycin IV 1 GM VIAL ONE (11:41)
[2022-07-22] MEDS ORDERED: IOPAMIDOL 370 MG/ML 100 ML INFUS..BTL INJ ONE (12:06)
[2022-07-22] MEDS ORDERED: SODIUM CHLORIDE 0.9% 1000ML 1,000 ML ONE (12:15)
[2022-07-22 15:58] VITALS: BP 122/92
[2022-07-22 16:17] VITALS: BP 122/92
[2022-07-22 16:24] VITALS: BP 122/92
[2022-07-22] MEDS: SODIUM CHLORIDE 0.9% 1000ML 1,000 ML IV SCH ×2 (17:38→21:31)
[2022-07-22] MEDS ORDERED: Morphine 4mg INJECTION 4 MG/ML INJ IV PRN (17:45)
[2022-07-22 20:00] VITALS: BP 105/78
[2022-07-22 21:00] VITALS: BP 105/78
[2022-07-22] MEDS: Vancomycin IV 1 GM in SODIUM CHLORIDE 0.9% 250ML 250 ML IV SCH (21:30)
[2022-07-23] VITALS (8 sets, daily range): BP systolic 101–158; BP diastolic 63–84
[2022-07-23] MEDS: SODIUM CHLORIDE 0.9% 1000ML 1,000 ML IV SCH ×3 (05:00→21:49)
[2022-07-23 07:18] LABS: BASOPHILS % 0.3 % (0.0-1.0); EOSINOPHILS % 0.4 % (0.0-6.0); HEMATOCRIT 45.2 % (38.2-49.6); HEMOGLOBIN 14.5 g/dL (14.0-18.0); LYMPHOCYTES # (AUTO) 1.9 (1.0-3.2); LYMPHOCYTES % 17.4 % (18.0-39.1); MEAN CORPUSCULAR HEMOGLOBIN 32.2 pg (28-32); MEAN CORPUSCULAR HGB CONC 32.1 g/dL (31-35); MEAN CORPUSCULAR VOLUME 100.2 fL (81-99); MONOCYTES # (AUTO) 0.8 (0.2-0.8); MONOCYTES % 7.1 % (4.4-11.3); NEUTROPHILS # (AUTO) 7.9 (2.1-6.9); NEUTROPHILS % 74.5 % (38.7-80.0); PLATELET COUNT 337 x10e3/uL (140-360); RED BLOOD COUNT 4.51 x10e6/uL (4.3-5.7); RED CELL DISTRIBUTION WIDTH 11.2 % (11.7-14.4)
[2022-07-23 07:39] LABS: ANION GAP 13.8 mmol/L (8-16); CALCIUM 8.9 mg/dL (8.4-10.2); CREATININE, SERUM 0.79 mg/dL (0.72-1.25); POTASSIUM 3.8 mmol/L (3.5-5.1)
[2022-07-23] MEDS: Vancomycin IV 1 GM in SODIUM CHLORIDE 0.9% 250ML 250 ML IV SCH ×2 (08:54→21:49)
[2022-07-23 15:34] LABS: INR 1.12; PROTHROMBIN TIME 14.6 seconds (11.9-14.5)
[2022-07-24] VITALS: BP 132/97
[2022-07-24 04:00] VITALS: BP 122/86
[2022-07-24] MEDS: SODIUM CHLORIDE 0.9% 1000ML 1,000 ML IV SCH ×2 (05:55→16:32)
[2022-07-24 08:52] VITALS: BP 130/94
[2022-07-24 09:28] VITALS: BP 130/94
[2022-07-24] MEDS: Vancomycin IV 1 GM in SODIUM CHLORIDE 0.9% 250ML 250 ML IV SCH (10:49)
[2022-07-24 12:52] VITALS: BP 126/97
[2022-07-24] MEDS ORDERED: MEROPENEM 1 GM in SODIUM CHLORIDE 0.9% 100 ML IV SCH (15:00)
[2022-07-24] MEDS ORDERED: DAPTOMYCIN 500mg 10ML 500 MG in SODIUM CHLORIDE 0.9% 100 ML IV SCH (16:00)
[2022-07-24 17:34] VITALS: BP 126/97
== END 2022-07-24 17:40 | disposition home or self-care (01) | DRG 159 ==
LOC: FSED 10:47 → ERHOLD 12:58 → INTOOBSV 12:58 → MED/SURG3 15:31 → OBSVTOIN 07-24 08:59
PROVIDERS: ADMIT Family Medicine; ATTEND Family Medicine
PROC: 02HV33Z Insertion of Infusion Device into Superior Vena Cava, Percutaneous Approach (ICD-10-PCS; principal; 2022-07-23)
DX: K04.7 Periapical abscess without sinus (principal); M10.9 Gout, unspecified; F17.200 Nicotine dependence, unspecified, uncomplicated; Z79.899 Other long term (current) drug therapy; Z87.442 Personal history of urinary calculi; Z98.890 Other specified postprocedural states
CPT/HCPCS: 36415; 36569; 70491; 71045; 80048; 80053; 80202; 85025; 85610; 87040; 96374; 96375; 99284; G0378; J2185; J2270; J2405; J2543; J3370; J7030; J7050; Q9967